=== PATIENT | female | born 1985 | race Caucasian/White ===

== ENCOUNTER 2016-09-01 05:20 | Inpatient (IN) | payer BC ==
[~2016-09-01] VITALS: Ht 157.5 cm; Wt 112.5 kg
[2016-09-04] MEDS ORDERED: COLACE-DPS100 MG PO (11:59)
[2016-09-04] MEDS ORDERED: PRENATAL VIT1 TAB PO (11:59)
[2016-09-04] MEDS ORDERED: MOTRIN-DPS800 MG PO (11:59)
[2016-09-04] MEDS ORDERED: PERCOCET 5 DPS1 TAB PO (11:59)
[2016-09-04] MEDS ORDERED: NIPPLECREAM TP (12:00)
--- NOTE | 2016-09-28 07:21 | HP ---
ADMIT: 09/01/2016 RM/LOC: 223 [facility] MR#: [id number] [facility] [address] [place], [place] [address] JOSEPH KELLY [address] [place], [place] [address] Pre-OP History and Physical SEX: F AGE: 30 : 1985 DATE OF SERVICE: HISTORY OF PRESENT ILLNESS: The patient is a 30-year-old, 3, para 1-0- 1-1, who presented to Labor and Delivery at 39-2/7th weeks' gestation with estimated date of confinement 09/06/2016. The patient's has been complicated by obesity and previous section x1 as well as abnormal quad screen, which was followed by a normal followup ultrasound with Maternal Medicine. Risks, benefits, and alternatives of repeat section were discussed and she wished to proceed. LABORATORY DATA: Blood type A positive. Antibody screen negative. Rubella immune. HIV negative. RPR nonreactive. Hep B surface antigen negative. Gonorrhea and chlamydia negative. Quad screen positive for Down syndrome with normal MFM followup and elevated 1-hour glucose tolerance test with normal 3-hour glucose tolerance test. Group B strep negative. PAST MEDICAL HISTORY: Noncontributory. PAST SURGICAL HISTORY: section x1. ALLERGIES: NO KNOWN MEDICAL ALLERGIES. CURRENT MEDICATIONS: vitamins daily. FAMILY HISTORY: Noncontributory. SOCIAL HISTORY: The patient is single. She denies any alcohol, tobacco, or drug use. PHYSICAL EXAMINATION: VITAL SIGNS: On admission, vital signs are stable. The patient is afebrile. GENERAL: The patient is alert and oriented, no acute distress. HEART: Regular rate and rhythm without murmurs, gallops, or rubs. LUNGS: Clear to auscultation bilaterally. ABDOMEN: Soft, nontender, gravid. EXTREMITIES: Trace edema. No calf tenderness. ADMIT: 09/01/2016 RM/LOC: 223 [facility] MR#: [id number] [facility] [address], [place] [address] JOSEPH KELLY [address] [place] [address] Pre-OP History and Physical SEX: F AGE: 30 : 1985 ASSESSMENT AND PLAN: 1. A 30-year-old, 3, para 1-0-1-1, at 39-2/7th weeks' gestation. 2. History of previous section. Plan to proceed with repeat low transverse section. The risks, benefits, and alternatives of surgery including, but not limited to the risk of bleeding, possibly requiring blood transfusion, risk of infection, the risk of injury to bowel or bladder have been discussed with the patient and she wished to proceed. 3. Maternal obesity. 4. Abnormal quad screen with elevated risk of Down syndrome, followed by normal ultrasound by MFM. Dagmar Dorado MD/ lorena JOB #: [id number] CC: Dagmar Dorado, Attending Physician Dagmar Dorado, Family Physician
--- NOTE | 2016-09-28 07:21 | OR ---
ADMIT: 09/01/2016 RM/LOC: 223 [facility] MR#: [id number] 2620 [facility] [address] [place], [place] [address] JOSEPH KELLY [address] [place] [address] Operative/Delivery Room Report SEX: F AGE: 30 : 1985 SURGERY DATE: 09/01/2016 SURGEON: Dagmar Dorado MD NAME OF PROCEDURE: Repeat low-transverse section. ASSISTANTS: 1. Sandra Resendiz MD. 2. Cyndie Sahu MD Resident. PREOPERATIVE DIAGNOSES: 1. Intrauterine at 39-2/7th weeks' gestation. 2. Previous section x1. 3. Maternal obesity. 4. Abnormal quad screen with increased risk of Down syndrome. POSTOPERATIVE DIAGNOSES: 1. Intrauterine at 39-2/7th weeks' gestation. 2. Previous section x1. 3. Maternal obesity. 4. Abnormal quad screen with increased risk of Down syndrome. FINDINGS: 1. Liveborn female infant, scores 8 at 1 minute and 9 at 5 minutes, weight 8 pounds 1 ounce. 2. Normal appearing uterus, tubes, and ovaries bilaterally. ESTIMATED BLOOD LOSS: 500 mL. ANESTHESIA: Spinal. COMPLICATIONS: None. INDICATIONS FOR PROCEDURE: The patient is a 30-year-old female, who had presented for scheduled repeat section due to history of previous section x1. The patient's had been complicated by history of previous as well as maternal obesity and abnormal quad screen with increased risk of Down syndrome. Risks, benefits, and alternatives of surgery have been discussed with the patient, she agreed to proceed. DESCRIPTION OF PROCEDURE: The patient was taken to the operating room where spinal anesthesia was obtained without difficulty. The patient was placed in dorsal supine position in leftward tilt, and prepped and draped in the usual sterile fashion. A Pfannenstiel skin incision was made with a scalpel and was carried through to the underlying layer of fascia. The fascia was nicked in midline and this incision was extended bilaterally using Jacobo scissors. The superior aspect of the fascial incision was grasped with Sid clamps, elevated, and the underlying rectus muscles were dissected off with Jacobo scissors. In a similar fashion, the inferior aspect of the fascial incision ADMIT: 09/01/2016 RM/LOC: 223 [facility] MR#: [id number] [address] [address] APRIL KELLYCROW [address] [place] [address] Operative/Delivery Room Report SEX: F AGE: 30 : 1985 was grasped with Sid clamps, elevated, and the underlying rectus muscles were dissected off with Jacobo scissors. The peritoneum was entered bluntly and this incision was extended bluntly as well. The bladder blade was then placed. The vesicouterine peritoneum was identified and entered sharply with Metzenbaum scissors. This incision was extended bilaterally and a bladder flap was created digitally. The bladder blade was then replaced. The lower uterine segment was incised with a scalpel. This incision was extended bluntly. The vertex was grasped and delivered through the uterine incision. The remainder of the delivered without difficulty as well. The was dried. The cord was clamped and cut, and infant was handed off to the warmer where nursing personnel were in attendance. The placenta then delivered intact. Twenty units of Pitocin had been placed in IV bag to firm the uterus. The uterus was exteriorized and cleared of all clots and debris. The uterine incision was closed in a running locked fashion using 0 Vicryl. Several additional [id number] stitches were used for hemostasis of the uterine incision. The uterus was then replaced into the abdominal cavity. The gutters were checked and cleared of all clots and debris. The uterine incision was again examined and was noted be hemostatic. The muscles and fascia remained hemostatic, and the fascial incision was closed in a running fashion using 0 Vicryl. The subcutaneous layer was made hemostatic with electrocautery and this layer was brought together with interrupted 2-0 plain gut. The skin incision was closed with subcuticular stapler. The patient tolerated the procedure well. All sponge and needle counts were correct. The patient and her recovered in the room in stable condition. Dagmar Dorado MD/ lorena JOB #: [id number] CC: Dagmar Dorado, Attending Physician Dagmar Dorado, Family Physician
--- NOTE | 2016-11-13 08:40 | DS ---
ADMIT: 09/01/2016 RM/LOC: 223 [facility] MR#: [id number] [id number] [facility] [address] [place], [place] [address] APRIL KELLYCROW [address] [place] [address] General Discharge Summary SEX: F AGE: 30 : 1985 ADMISSION DATE: 09/01/2016 DISCHARGE DATE: 09/03/2016 ADMISSION DIAGNOSES: 1. Intrauterine at 39-2/7th weeks' gestation. 2. History of previous section x1. 3. Abnormal quad screen. DISCHARGE DIAGNOSES: 1. Intrauterine at 39-2/7th weeks' gestation. 2. History of previous section x1. 3. Abnormal quad screen. PROCEDURES PERFORMED: Repeat low transverse section performed on 09/01/2016, with delivery of liveborn female , scores 8 at 1 minute, 9 at 5 minutes. Weight 8 pounds 1 ounce. INDICATIONS FOR HOSPITALIZATION: The patient is a 30-year-old, 3, para 1-0-1-1, who presented to Labor and Delivery at 39-2/7th weeks' gestation for scheduled repeat section. The had been complicated by obesity, previous section x1, and abnormal quad screen, but ultrasound had been normal with Maternal- Medicine. Risks, benefits, and alternatives of surgery were discussed with the patient, and she wished to proceed. HOSPITAL COURSE: The patient underwent the above-named procedure on 09/01/2016. Postoperatively, the patient did well. Postoperative day #1, the patient's pain was controlled, she was voiding and ambulating without difficulty, blood pressures were stable and postoperative hemoglobin was noted be 11.6. By postoperative day #2, the patient was ambulating, voiding, tolerating regular diet, vital signs were stable, and the patient was deemed stable for discharge on postoperative day #2. DISCHARGE INSTRUCTIONS: The patient to be discharged to home. She is to continue Motrin and Percocet as needed for pain control. She is to follow up in the clinic in 2 weeks for an incision check and in 6 weeks for a check. FINAL DISPOSITION: The patient is to home. CONDITION ON DISCHARGE: Stable. Dagmar Dorado MD/ lorena JOB #: [id number] CC: Dagmar Dorado MD, Attending Physician ADMIT: 09/01/2016 RM/LOC: 223 [facility] MR#: [id number] [address] [address] JOSEPH KELLY [address] [place] [address] General Discharge Summary SEX: F AGE: 30 : 1985 Dagmar Dorado MD, Family Physician
== END 2016-09-03 13:50 | disposition home or self-care (01) | DRG 765 ==
LOC: BC 05:20 → 2LDRP 05:20 → BC 09-06 08:00
PROVIDERS: ADMIT Obstetrics & Gynecology
PROC: 10D00Z1 Extraction of Products of Conception, Low, Open Approach (ICD-10-PCS; principal; 2016-09-01)
DX: O34.211 Maternal care for low transverse scar from previous cesarean delivery (principal); Z68.41 Body mass index [BMI] 40.0-44.9, adult; O99.214 Obesity complicating childbirth; E66.9 Obesity, unspecified; Z3A.39 39 weeks gestation of pregnancy; Z37.0 Single live birth